=== PATIENT | female | born 1940 | race Caucasian/White ===

== ENCOUNTER 2016-07-30 14:45 | Emergency (ER) | payer MEDICARE | END 2016-07-30 20:46 | disposition home or self-care (01) | LOC: D.ER 14:45 | DX: R10.32 Left lower quadrant pain (principal); K94.23 Gastrostomy malfunction; K59.00 Constipation, unspecified; Z86.73 Personal history of transient ischemic attack (TIA), and cerebral infarction without residual deficits; I10 Essential (primary) hypertension; E78.5 Hyperlipidemia, unspecified; G89.29 Other chronic pain ==